=== PATIENT | male | born 1995 | race Caucasian/White ===

== ENCOUNTER 2017-10-07 00:57 | Emergency (ER) | payer BC, OTHER ==
[~2017-10-07] VITALS: Ht 177.8 cm; Wt 103.1 kg
[2017-10-07 01:02] VITALS: TEMP 37; Ht 177.8 cm; Wt 103.1 kg
[2017-10-07] MEDS ORDERED: DiphenhydrAMINE HCL 50 MG/ML VIAL IV STA (01:17)
[2017-10-07] MEDS ORDERED: DEXAMETHASONE INJ 10 MG in SYRINGE 0 ML IV STA (01:17)
[2017-10-07] MEDS ORDERED: DEXAMETHASONE **PF** INJ 10 MG/ML VIAL ONE (01:25)
[2017-10-07] MEDS ORDERED: RANITIDINE HCL 150 MG TAB PO ONE (01:30)
--- NOTE | 2017-10-07 01:36 | EMERGENCY ROOM VISIT NOTE ---
History Report prepared by Kimberly: Brooke Moreland Under the Supervision of: Dr. Maryan Diaz D.O. First contact with patient: 01:09 Chief Complaint: ALLERGIC REACTION Stated Complaint: SWELLING OF MOUTH AND THROAT Nursing Triage Summary: Pt reports he started Doxycycline at 3pm on Monday for rash to lower back. Tonight pt developed swelling of tongue and SOB. Pt took Benadryl 25 mg prior to arrival. No swelling noted. O2 sats 97%. History of Present Illness The patient is a 21 year old male who presents to the Emergency Room with complaints of episodic throat swelling secondary to allergic reaction beginning at 0045 this evening. He states that he was diagnosed with herpes five years ago and it came back a week ago as a rash on his lower back. He was told it was bacterial and was prescribed Doxycycline. He states that he took the first dose at 1500 yesterday. He notes he did not start experiencing his throat closing and tongue swelling until 0045 today. He denies any itchiness or hives. He denies any abdominal pain. He feels ulcers in his lower mouth. He reports drinking five alcoholic beverages earlier this evening. Source of History: patient Onset: 0045 this evening Position: throat Quality: other (swelling) Timing: other (episodic) Associated Symptoms: + rash, No abdominal pain Note: Notes tongue swelling and ulcers in mouth. Denies itchiness or hives. Review of Systems See HPI for pertinent positives & negatives. A total of 10 systems reviewed and were otherwise negative. Past Medical & Surgical Medical Problems: (1) Herpes (2) Injury of fifth finger, left Family History Cancer Social History Smoking Status: Never Smoker Smokeless Tobacco Use: No Alcohol Use: heavy Drug Use: none Marital Status: single Housing Status: lives with roommate Occupation Status: [employer] student Current/Historical Medications No Active Prescriptions or Reported Meds Allergies Coded Allergies: No Known Allergies (Unverified , 04/28/15) Physical Exam Vital Signs Date Time Temp Pulse Resp B/P (MAP) Pulse Ox O2 Delivery O2 Flow Rate FiO2 10/07/17 02:18 81 16 141/77 96 Room Air 10/07/17 01:11 97 Room Air 10/07/17 01:02 37.0 87 20 145/88 97 Room Air Physical Exam HEENT: Head - normocephalic and atraumatic Pupils are equal, round, and reactive to light. Extraocular eye muscles are intact, and sclera are anicteric. Nose - moist nasal mucosa without discharge. Mouth - moist buccal mucosa. Oropharynx is nonerythematous and there is no tonsillar exudate. Edema of posterior oropharynx, uvula normal. Neck: Supple; no JVD, nuchal rigidity, cervical lymphadenopathy. Heart: Regular rate and rhythm. There is a normal S1 and S2 with no murmurs, clicks, or gallops appreciated. Lungs: Clear to auscultation bilaterally with no wheezes, rales, or rhonchi. Abdomen: Soft, completely nontender, nondistended, with good bowel sounds. There are no palpable pulsatile masses or hepatosplenomegaly. There is no guarding, rigidity, or rebound noted. Extremities: No evidence of cyanosis, clubbing, or edema. There are easily palpable peripheral pulses. Skin: warm and dry with good turgor and no rashes. Medical Decision & Procedures Medications Administered Medications (Trade) Dose Ordered Sig/Juana Route Start Time Stop Time Status Last Admin Dose Admin Diphenhydramine HCl (Benadryl Inj) 25 mg NOW STAT IV 10/07/17 01:17 10/07/17 01:19 DC 10/07/17 01:26 25 MG Ranitidine HCl (zANTac TAB) 150 mg NOW ONCE PO 10/07/17 01:30 10/07/17 01:31 DC 10/07/17 01:26 150 MG Dexamethasone Sodium Phosphate (Dexamethasone Inj Pf) 10 mg STK-MED ONCE .ROUTE 10/07/17 01:25 10/07/17 01:26 DC 10/07/17 01:28 10 MG Procedure 0117: Ordered Dexamethasone Sodium Phosphate 10 mg /Syringe 2.5 ml @ 1 mls/min IV and Benadryl 25 mg IV 0130: Ordered Ranitidine HCl 150 mg PO ED Course 0112: Past medical records reviewed. The patient was evaluated in room B2. A complete history and physical exam was performed. IV lock was established. 0117: Ordered Dexamethasone Sodium Phosphate 10 mg /Syringe 2.5 ml @ 1 mls/min IV and Benadryl 25 mg IV 0130: Ordered Ranitidine HCl 150 mg PO 0209: I reassessed the patient at this time. He is feeling better. He will be given a PO challenge. 0246: I reassessed the patient at this time. He is feeling better and he was able to drink fluids. His symptoms have resolved. I discussed the results and treatment plan with the patient. I suggested he stop taking the doxycycline. I answered all pertaining questions that he had. He expressed understanding and verbalized agreement. The patient will be discharged home. Medical Decision The patient is a 21 year old male who presents to the ED with throat swelling secondary to allergic reaction. Differential diagnosis includes anaphylaxis, acute allergic reaction, and medication side effects. This is a 21-year-old male patient who presents to the emergency department with a sense that his throat was swelling and he believes he was having allergic reaction to doxycycline. On physical exam, the patient did have some edema to the posterior oropharynx. He was in no acute respiratory distress and his vital signs were stable. The patient received Decadron, Benadryl and Zantac with significant relief to his symptoms. He was told to stop taking the doxycycline. On examination of his back, it appears that the patient does have shingles. I am not overly suspicious of a overlying bacterial infection. It is too late to start the patient on Valtrex. He can continue to use his topical antibiotic ointment to that area. He can also use Benadryl and Zantac for continued allergic symptoms. Medication Reconcilliation Current Medication List: was personally reviewed by me Blood Pressure Screening Patient's blood pressure: Elevated blood pressure Blood pressure disposition: Elevated BP felt to be situational Impression Primary Impression: Allergic reaction caused by a drug Scribe Attestation The scribe's documentation has been prepared under my direction and personally reviewed by me in its entirety. I confirm that the note above accurately reflects all work, treatment, procedures, and medical decision making performed by me. Departure Information Dispostion Home / Self-Care Prescriptions No Active Prescriptions or Reported Meds Referrals No Doctor, Assigned (PCP) Forms HOME CARE DOCUMENTATION FORM, IMPORTANT VISIT INFORMATION Patient Instructions ED Drug React Allergic, [facility] Additional Instructions Rest with your head elevated. Take benadryl and zantac if needed. Stop the doxycycline. Return to the ER if symptoms worsen Problem Qualifiers Primary Impression: Allergic reaction caused by a drug Encounter type: initial encounter Qualified Codes: T78.40XA - Allergy, unspecified, initial encounter
[2017-10-07 02:18] VITALS: BP 141/77; PULSE 81; O2SAT 96
== END 2017-10-07 02:48 | disposition home or self-care (01) ==
LOC: C.EDB 00:58
DX: J39.2 Other diseases of pharynx (principal); T36.4X5A Adverse effect of tetracyclines, initial encounter; B00.9 Herpesviral infection, unspecified

== ENCOUNTER 2018-10-15 08:40 | Inpatient (IN) ==
[2018-10-15] MEDS ORDERED: OXYCODONE HCL IR 5 MG TAB (IMMEDIATE RELEASE) PO STA (08:58)
--- NOTE | 2018-10-15 11:39 | History and Physical Report ---
DATE OF ADMISSION: 10/15/2018 HISTORY OF PRESENT ILLNESS: The patient is 2-1/2 weeks status post closed reduction, percutaneous pinning of a carpometacarpal fracture dislocation of his right hand. He had been seen previously in followup and his hand looked well. X-rays show good alignment and positioning of pins and fracture. He was to follow up with me this past Monday, but did not show up to the appointment. He reported that yesterday evening, he started to develop redness, pain and swelling in his right hand as well as drainage from the pin on the most radial side of his hand. He came to the ER at 4:00 this morning, x-rays were done and they spoke to the orthopedic doctor on-call. He was given intravenous antibiotics and discharged home. He came back several hours later with complaints of similar ongoing problems. He does not have a splint with him here today. He did not report any reinjury. He denies fever, chills or sweats. He is supposed to be wearing a splint on his hand for the time being. He has just graduated from [employer]. PAST MEDICAL HISTORY: Includes acid reflux, obsessive compulsive disorder and anxiety. SOCIAL HISTORY: He smokes, occasionally drinks and uses marijuana. PAST SURGICAL HISTORY: None. ALLERGIES: DOXYCYCLINE CAUSED TONGUE AND MOUTH SWELLING. PHYSICAL EXAMINATION: VITAL SIGNS: He is afebrile, although his blood pressure is slightly up and his pulse is 100. MUSCULOSKELETAL: There is erythema on the right hand, dorsal aspect, mainly centrally and radially. The 2 radial pins have some crusted drainage on them, the most radial worse than the other. There is tenderness around the most radial pin. The ulnar 2 pins are benign. There is no hand deformity evident. Swelling is moderate. He has good range of motion of the wrist. Finger movement is limited at the metacarpophalangeal joint and he can flex about 50% of his other joints. Median, radial and ulnar motor and sensory functions are intact. The wrist and metacarpophalangeal joints are unremarkable, but stiff. DIAGNOSTIC IMAGING: Radiographs of the hand demonstrate pins in place. The CMC fracture dislocation appears to be well aligned on the AP view. On the lateral, there is perhaps protrusion of one of the bones dorsally versus radiographic projecting compared to previous films. Pins are in place. IMPRESSION: Postoperative pin tract infection with cellulitis, right hand status post CMC fracture dislocation, closed reduction, pinning. PLAN: Findings discussed. His white count is 12 with a left shift. I recommend we admit him to the hospital, elevate the hand, a bulky hand dressing with fluffs between the fingers is applied along with a volar splint. Pin care is performed and padding is placed under the pins. He will be admitted to the hospital for intravenous antibiotics, ice and elevation. We will start on vancomycin and Ancef. He does not have a history of MRSA. I will also obtain a CT scan to evaluate alignment. Pain medication and antinausea medicine. Pins are not loose.
[2018-10-15] MEDS ORDERED: ONDANSETRON INJ 2 MG/ML 2 ML VIAL IV PRN (12:52)
[2018-10-15] MEDS ORDERED: VANCOMYCIN CONSULT ACTIVE PRN (12:52)
--- NOTE | 2018-10-15 13:28 | CT Scan Report ---
CT wrist RT wo con CT DOSE: 181.45 mGy.cm CLINICAL HISTORY: Carpometacarpal joint fracture. Postsurgical study. TECHNIQUE: Helical images were acquired in the transverse plane. Sagittal and coronal reformatted erik ges were acquired. A dose lowering technique was utilized adhering to the principles of ALARA. COMPARISON STUDY: 09/25/2018 FINDINGS: There has been interval pinning of the comminuted intra-articular fractures involving the p roximal third fourth and fifth metacarpals. The fifth metacarpal fracture demonstrates 4 mm of dorsal displacement. The fourth metacarpal fracture demonstrates 4 mm dorsal displacement. The third metaca rpal fracture demonstrates 3 mm of dorsal displacement. IMPRESSION: 1. Interval reduction and pinning of the comminuted intra-articular fractures involving the proximal third, fourth, and fifth metacarpals. There is mild residual dorsal displacement of the third, fourth , and fifth metacarpal fractures as described above. Electronically signed by: Johnny Rosas M.D. 10/15/2018 1:26 PM
--- NOTE | 2018-10-15 13:37 | Emergency Department Note ---
Entered by Aidee Mane acting as a scribe for History of Present Illness General Chief complaint: Infection, Wound Stated complaint: INFECTION OF RT HAND Source: patient Mode of arrival: ambulatory Limitations: no limitations History of Present Illness Provider complaint: right hand pain Onset (ago): hour(s) (this morning) Location: upper extremity and right Pain Consistency: + other (worsening) Maximum Pain Intensity: 8 Quality: + other (post-op) Associated symptoms: + denies other symptoms (numbness) and + other (redness); no chest pain, no fever/chills, no nausea/vomiting and no shortness of breath Treatments prior to arrival: other (ibuprofen) The patient is a 22 year old male who presents to the ER with complaints of a worsening right hand pain that began this morning. The patient reports that he punched a wall and fractured his third, fourth and fifth digits on September 27. He notes that he did have surgery performed and denies any complications following the surgery until yesterday evening when he developed pain and redness around the surgical area. He notes that he was evaluated this morning at this hospital for this but that it has worsened since being discharged. He denies any new fevers, nausea, vomiting, diarrhea, chest pain, shortness of breath, numbness or tingling. He states that he did take ibuprofen earlier today. Home Medications Home Medications Medication Instructions Recorded Confirmed Type Toxin Rid 3 tab PO 5XD 10/15/18 10/15/18 History cephalexin [Keflex] 500 mg PO QID 10 Days #40 cap 10/15/18 10/15/18 Rx ibuprofen 200 mg PO Q6H PRN 10/15/18 10/15/18 History Allergies Allergy/AdvReac Type Severity Reaction Status Date / Time doxycycline Allergy Intermediate tongue, Verified 10/15/18 09:19 mouth swells Past Med/Surg History Medical History No pertinent past medical history Surgical History No pertinent past surgical history Family History Grandmother Family history of diabetes mellitus Grandfather (Maternal) Family hx of colon cancer Social History Preferred Language: Lao Communication Ability: Effective Consolidator Required: No Beliefs That Will Affect Care: None Current Living Situation: Other Current Living Situation Comment: roommates Feels Safe at Home: Yes Safety Concerns: Feels Safe At This Time Smoking Status: Current every day smoker Tobacco Type: e-cigarettes Do You Dip or Chew Tobacco: No Second Hand Exposure: No Tobacco Cessation Education Requested by Patient: No Hx Alcohol Use: Yes Alcohol type: beer, wine and hard liquor Hx Substance Use: Yes substance use type: marijuana Substance Use Type Other:: daily Review of Systems See HPI for pertinent positives & negatives. and A total of 10 systems reviewed and were otherwise negative Physical Exam Vital Signs Vital Signs - 24 hr 10/15/18 08:48 10/15/18 10:44 10/15/18 12:20 Temperature 36.7 C Temperature Source Oral Sepsis Recent Fever Within 48 Hours No Sepsis New/Unexplained Change in Mental Status No Sepsis Action Taken by Nursing No Action Required Pulse Rate 114 H Pulse Rate [Finger] 100 H 70 Pulse Rhythm [Finger] Regular Respiratory Rate 20 18 17 Respiratory Effort / Characteristics Non-Labored Respiratory Depth Normal Blood Pressure 150/100 H Blood Pressure [Left Arm] 145/91 H 140/90 Blood Pressure Mean 116 Blood Pressure Mean [Left Arm] 109 106 Pulse Oximetry 97 96 97 Oxygen Delivery Method Room Air Room Air 10/15/18 12:49 Temperature Temperature Source Sepsis Recent Fever Within 48 Hours Sepsis New/Unexplained Change in Mental Status Sepsis Action Taken by Nursing Pulse Rate Pulse Rate [Finger] Pulse Rhythm [Finger] Respiratory Rate Respiratory Effort / Characteristics Respiratory Depth Blood Pressure Blood Pressure [Left Arm] Blood Pressure Mean Blood Pressure Mean [Left Arm] Pulse Oximetry Oxygen Delivery Method Room Air GENERAL: Sitting up in bed, alert, well appearing, well nourished, no distress, non-toxic EYE EXAM: normal conjunctiva OROPHARYNX: no exudate, no erythema, lips, buccal mucosa, and tongue normal and mucous membranes are moist LUNGS: Clear to auscultation. Normal chest wall mechanics HEART: no murmurs, S1 normal and S2 normal ABDOMEN: abdomen soft, non-tender, normo-active bowel sounds, no masses, no rebound or guarding. UPPER EXTREMITIES: Right hand dorsal surface 3 pins over 3rd-5th metacarpals. Pins are clean and dry on 4/5. 3rd, small amount of moist/yellow drainage. Skin is red, warm and tender. Edema localized dorsal aspect of hand. No streaking erythema. Erythema is quarter of a cm outside of previously drawn line. LOWER EXTREMITIES: No pitting edema. NEURO EXAM: Normal sensorium, cranial nerves II-XII grossly intact, normal speech, no gross weakness of arms, no gross weakness of legs. Course ED COURSE: Vital signs were reviewed and showed hypertension and tachycardia. The patients medical record was reviewed The above diagnostic studies were performed and reviewed. ED treatments and interventions as stated above. 0852: The patient was evaluated in room B5. A complete history and physical examination was performed. 0908: I discussed the patients case with Dr. Jc MUHAMMAD who recommended I consult Dr. Dumont. 0921: I discussed the patients case with Dr. Dumont - Margaret. He will come evaluate the patient in about an hour. 1042: Dr. Dumont accepted the patient into his care. 1045: I discussed my findings with the patient and he understands and agrees with the treatment plan. Based on the patients age, coexisting illnesses, exam and lab findings the decision to treat as an inpatient was made. The patient remained stable while under my care. The patient will be evaluated for further management. Administered Medications Discontinued Medications Oxycodone HCl (Roxicodone Immediate Rel) 5 mg PO NOW STA Stop: 10/15/18 08:59 Last Admin: 10/15/18 09:04 Dose: 5 mg Documented by: [id number] Medical Decision Making Differential Diagnosis Differential diagnosis includes: fracture, dislocation, neurovascular compromise, compartment syndrome, soft tissue injury, as well as others were entertained. Medical Records Attestation: I reviewed the patient's medical records. The patient was evaluated at this hospital on the 27 of September and found to have fractures of the third, fourth and fifth metacarpal and had surgery performed. He was evaluated this morning again for hand pain and swelling. Home Medications Current Medication List: was personally reviewed by me Blood Pressure Blood Pressure Findings: Elevated blood pressure MDM Narrative Patient is a 22-year-old male who was recently seen here earlier this morning for pain and swelling of his right hand. He is postop from with PDX surgery for fractures of his third fourth and fifth metacarpals. Surgery was on September 27. No fevers. Worsening pain and swelling which caused him to come back in again. Labs were reviewed and showed a leukocytosis. X-rays were reviewed and were fairly unremarkable. Discussed with orthopedics who evaluated him at bedside. Patient already received a dose of IV Rocephin upon review of the chart earlier this morning. Orthopedics was agreeable to admitting him and the patient was admitted to the hospital for postop infection of his left hand. Impression & Plan Postoperative infection Discharge Plan Visit Data *Final* Discharge Date/Time: 10/15/18 12:49 Chief Complaint: Infection, Wound Stated Complaint: INFECTION OF RT HAND ED Provider: Shahzad Warner Discharge Problem: Postoperative infection Patient Disposition: Admitted As Inpatient Discharge Instructions Interventions: ED Discharge Assessment Last Done: 10/15/18 12:49 Discharge Problem: Postoperative infection Qualifiers: Encounter type: initial encounter The scribe's documentation has been prepared under my direction and personally reviewed by me in its entirety. I confirm that the note above accurately reflects all work, treatment, procedures, and medical decision making performed by me.
[2018-10-15] MEDS ORDERED: VANCOMYCIN HCL 2,500 MG in SODIUM CHLORIDE 0.9% 500 ML IV ONE (14:00)
[2018-10-15] MEDS: CEFAZOLIN 1000MG 1,000 MG/7.5 ML SYR IV SCH ×2 (14:18→22:31)
--- NOTE | 2018-10-15 15:00 | Pharmacy Report ---
Pharmacy Abx Dose Short Note - Date of Service October 15, 2018 - Assessment & Plan Assessment * Mr Celestin is a 22 year old M receiving Vancomycin/Cefazolin for treatment of R hand cellulitis, 2-1/2 weeks s/p closed reduction, percutaneous pinning of a carpometacarpal fracture dislocation * He presented to the ED with increased redness/swelling and some discharge * WBC 12.6 * Patient received one dose of Rocephin in the ED and then was discharged. Pt returned to the ED several hours with no improvement in symptoms. Patient admitted for IV antibiotics. Plan Vancomycin * Loading dose: Vancomycin 2500mg (~24.5mg/kg) IV x1 dose, then: * Vancomycin 1500mg (~14.5mg/kg) IV q8h * Goal trough level for SSTI: 10 to 15 mcg/mL * Trough level ordered for: 10/17 prior to the 5th maintenance dose, which will be credit and collections representative of steady-state. Pharmacy will continue to follow and will adjust dose/frequency as necessary. Thank you.
[2018-10-15] MEDS: OXYCODONE/ACETAMINOPHEN 5mg/325mg TAB PO PRN ×2 (15:05→20:05)
[2018-10-15] MEDS: VANCOMYCIN HCL 1,500 MG in SODIUM CHLORIDE 0.9% 500 ML IV SCH (22:36)
[2018-10-16] MEDS: OXYCODONE/ACETAMINOPHEN 5mg/325mg TAB PO PRN ×4 (01:24→21:59)
[2018-10-16] MEDS: VANCOMYCIN HCL 1,500 MG in SODIUM CHLORIDE 0.9% 500 ML IV SCH ×3 (05:48→21:59)
[2018-10-16] MEDS: CEFAZOLIN 1000MG 1,000 MG/7.5 ML SYR IV SCH ×2 (05:48→13:48)
[2018-10-16 06:50] LABS: Basophils # (auto) 0.03 K/uL (0-0.2); Basophils % (auto) 0.4 %; Eosinophils # (auto) 0.17 K/uL (0-0.5); Eosinophils % (auto) 2.2 %; Hematocrit (blood only) 43.7 % (42-52); Hemoglobin 14.9 g/dL (14.0-18.0); Immature Granulocytes # (auto) 0.03 K/uL (0.00-0.02); Immature Granulocytes % (auto) 0.4 %; Lymphocytes # (auto) 2.08 K/uL (1.2-3.4); Lymphocytes % (auto) 27.5 %; Mean Corpuscular Hgb Conc 34.1 g/dL (32-36); Mean Corpuscular Volume 88.5 fL (80-100); Mean Platelet Volume 9.4 fL (7.4-10.4); Monocytes # (auto) 0.83 K/uL (0.11-0.59); Neutrophils # (auto) 4.42 K/uL (1.4-6.5); Neutrophils % (auto) 58.5 %; Platelet Count 231 K/uL (130-400); RDW Coefficient of Variation 12.4 % (11.5-14.5); RDW Standard Deviation 39.6 fL (36.4-46.3); Red Blood Count 4.94 M/uL (4.7-6.1); White Blood Count 7.56 K/uL (4.8-10.8)
--- NOTE | 2018-10-16 13:27 | Orthopedic Progress Note ---
Date of Service October 16, 2018 Assessment & Plan (1) Postoperative infection: Continue pressure dressing encourage elevation right hand Continue Ancef x 1 more dose, then D/C. Continue Vancomycin as ordered New dressing applied today Regular diet as ordered. Will recheck in Am and will plan to discharge home tomorrow if improved on oral antibiotics. Dr. Dumont present for today's visit. Present on Admission?: Yes Subjective Patient doing well, pain improved, resting in bed. Tolerating regular diet. Denies fever, chills. Physical Exam Physical Exam: Right hand dressing removed, less erythema, less edema, mild drainage from pin site, no active drainage today, less tenderness to palpation, stiffnes MP joints, distal N/V intact. Results & Data Vital Signs (Past 12 Hours) Vital Signs Temp Pulse Resp BP Pulse Ox 10/16/18 12:17 36.5 C 95 H 18 143/81 H 97 10/16/18 06:59 36.5 C 87 18 128/84 94 (1) Postoperative infection Encounter type: initial encounter
[2018-10-17] MEDS ORDERED: VANCOMYCIN TROUGH ONE (05:30)
[2018-10-17] MEDS: VANCOMYCIN HCL 1,500 MG in SODIUM CHLORIDE 0.9% 500 ML IV SCH (06:18)
[2018-10-17 06:31] LABS: Creatinine Clr Calc Pharmacy 183.3 ml/min; Est GFR (African American) 149.6
--- NOTE | 2018-10-17 08:39 | Orthopedic Progress Note ---
Date of Service October 17, 2018 Assessment & Plan (1) Postoperative infection: Continue pressure dressing; reapplied today Encourage elevation right hand Continue Vancomycin as ordered. will discharge to home with Bactrim DS x 7 days Regular diet as ordered. We will discuss findings with Dr. Dumont. Plan for discharge home today. Discharge instructions were reviewed and provided. Follow-up on Monday as scheduled for dressing change and wound check. Subjective Patient doing well. No complaints of significant pain right hand. States feeling better. Has kept it elevated. Physical Exam Physical Exam: Right hand dressings removed. Right hand still with mild edema less erythema. Tolerates range of motion of the PIP and DIP joints. Stiffness in the MCP joints. Pin sites are clean, dry and intact. No active drainage. Light pin cleaning was performed today. Less tender with palpation. Tolerates passive wrist range of motion. Distal sensation is normal. Distal pulses 1+. Results & Data Vital Signs (Past 12 Hours) Vital Signs Temp Pulse Resp BP Pulse Ox 10/17/18 07:49 36.7 C 70 16 120/81 97 10/16/18 23:42 37.2 C 94 H 18 138/78 97 (1) Postoperative infection Encounter type: initial encounter
--- NOTE | 2018-10-17 08:50 | Discharge Summary ---
Date of Service October 17, 2018 Discharge Data Consultations 10/15/18 09:28 Consult Orthopedic Surgery Stat Hospital Course (1) Postoperative infection: Patient was admitted to [facility] October 15, 2018 after seen and evaluated by Dr. Dumont for potential right hand postoperative wound infection. He is status post an closed reduction, percutaneous pinning of his right third, fourth and fifth metacarpal fractures with Dr. Dumont. He was doing well up until the weekend which she developed increased redness and swelling of his right hand. He had gone to the emergency room on Monday and antibiotic ordered and he was instructed to follow-up with Dr. Dumont's office. Two days later he return to the emergency room and swelling of his right hand as well as some drainage from [address] pin sites. Dr. Dumont was again consulted and seen. It was determined that he had developed postoperative pin tract infection in 1 of the pins in his right hand. Recommendation for adm ission. Patient agreed. He was admitted and started on IV Ancef and IV vancomycin for treatment of his pin tract infection. A CT scan of his right wrist was ordered to evaluate the fractures in his right hand. That showed that the fractures were comminuted but in acceptable alignment. He was placed in a bulky pressure dressing and splint and encouraged elevation of his right hand. He is allowed to do range of motion of his fingers as tolerated. He was given a regular diet. He was followed daily during his inpatient stay. He remained afebrile during his inpatient stay. On October 16, 2018 his IV Ancef was discontinued. His IV vancomycin was continued. Dressings were changed again on October 17, 2018. He continued to improve with less swelling, erythema and decreased pain. Instructions were provided for nonweightbearing of his right upper extremity. He was allowed out of bed as tolerated. Upon admission his white blood cell count was 12 and at discharge it was 7. No cultures were obtained. Due to his improvement it was determined that he could be discharged home with oral antibiotics. He was discharged to his home on October 17, 2017 in stable condition. He was prescribed Percocet for pain control and Bactrim DS 1 tablet p.o. twice daily x7 days. Discharge instructions were discussed. Follow-up was scheduled for Friday, October 19, 2018 in our office. He understands and agrees with the plan. Discharge Instructions as per EMR
== END 2018-10-17 10:03 | disposition home or self-care (01) | DRG 863 ==
LOC: ED 08:40 → 3W 10:55